=== PATIENT | female | born 1945 | race Caucasian/White ===

== ENCOUNTER → 2017-08-05 | Day surgery (SDC) | payer MEDICARE ==
[~2017-08-05] MED LIST: HYDROmorphone HCL 1 MG/ML SYRINGE (J1170) IV; KETAMINE HCL 200 MG/20 ML VIAL As Ordered; KETOROLAC 60 MG/2 ML VIAL (J1885) As Ordered; LIDOCAINE 2% INJ 100 MG/5 ML SDV (FOR ANES.) As Ordered; LR 1,000 ML IV; METOCLOPRAMIDE INJ 10MG/2ML VIAL (J2765) As Ordered; MIDAZOLAM INJ 2 MG/2 ML VIAL (J2250) As Ordered; ONDANSETRON 4MG/2ML VIAL (J2405) As Ordered; PERCOCET 5MG/325MG TAB PO; PHENYLephrine HCL 500 MCG/5 ML (100MCG/ML) SYRINGE (J2370) As Ordered; PROPOFOL 200 MG/20 ML VIAL As Ordered; dexameTHASONE 4 MG/ML 1ML VIAL (J1100) As Ordered; fentaNYL 100 MCG/2 ML INJECTION (J3010) As Ordered; fentaNYL 100 MCG/2 ML INJECTION (J3010) IV
[2017-08-05] MEDS: LR 1,000 ML IV ×2 (08:40)
[2017-08-05] MEDS: dexameTHASONE 4 MG/ML 1ML VIAL (J1100) As Ordered ×2 (08:47)
[2017-08-05] MEDS: BUPIVACAINE HCL 0.25% 30 ML VIAL As Ordered ×2 (08:47)
[2017-08-05] MEDS: BUPIVACAINE HCL 0.5% 30 ML VIAL As Ordered ×2 (09:58)
[2017-08-05] MEDS: LIDOCAINE 2% MDV 20 ML VIAL As Ordered ×2 (09:58)
[2017-08-05] MEDS: BACITRACIN PWD 50,000 UNITS VIAL As Ordered ×2 (09:58)
[2017-08-05] MEDS: NEOSPORIN GU IRRIG 20 ML VIAL As Ordered ×2 (10:01)
[2017-08-05] MEDS: ONDANSETRON 4MG/2ML VIAL (J2405) IV ×2 (12:40)
== END | disposition home or self-care (01) ==
LOC: M SDC 08:11
DX: M20.42 Other hammer toe(s) (acquired), left foot (principal); M21.622 Bunionette of left foot; I48.91 Unspecified atrial fibrillation; K21.9 Gastro-esophageal reflux disease without esophagitis; E78.2 Mixed hyperlipidemia; Z79.899 Other long term (current) drug therapy; Z88.8 Allergy status to other drugs, medicaments and biological substances
CPT/HCPCS: 28296

== ENCOUNTER → 2020-03-08 | Outpatient (CLI) | payer MEDICARE ==
[~2020-03-08] MED LIST changes: +AMIT50TA PO; +CEPH250T; +CEPH250T PO; -HYDROmorphone HCL 1 MG/ML SYRINGE (J1170) IV; -KETAMINE HCL 200 MG/20 ML VIAL As Ordered; -KETOROLAC 60 MG/2 ML VIAL (J1885) As Ordered; -LIDOCAINE 2% INJ 100 MG/5 ML SDV (FOR ANES.) As Ordered; -LR 1,000 ML IV; +METO50TA7 PO; -METOCLOPRAMIDE INJ 10MG/2ML VIAL (J2765) As Ordered; -MIDAZOLAM INJ 2 MG/2 ML VIAL (J2250) As Ordered; +OMEP40CA97 PO; -ONDANSETRON 4MG/2ML VIAL (J2405) As Ordered; -PERCOCET 5MG/325MG TAB PO; -PHENYLephrine HCL 500 MCG/5 ML (100MCG/ML) SYRINGE (J2370) As Ordered; -PROPOFOL 200 MG/20 ML VIAL As Ordered; +SIMV40TA20 PO; +XARE10TA PO; -dexameTHASONE 4 MG/ML 1ML VIAL (J1100) As Ordered; -fentaNYL 100 MCG/2 ML INJECTION (J3010) As Ordered; -fentaNYL 100 MCG/2 ML INJECTION (J3010) IV
--- NOTE | 2020-03-13 17:34 | SLEEPCENT ---
DATE: 03/08/2020 ORDERED BY: Micky Goodman MD Nocturnal polysomnography was performed for evaluation of sleep physiology in this patient with a history of excessive somnolence and nonrestorative sleep. Seven hours and 20 minutes of data were reviewed. There was 124 minutes of sleep identified. Sleep latency was prolonged at 43 minutes. REM sleep was not achieved. Sleep architecture was quite poor with frequent arousals, fragmentation and no progression to REM. Overall sleep efficiency was only 28.4%. The electrocardiogram showed atrial fibrillation with a ventricular response rate on average 80 beats per minute. Rate ranged 62-120. EEG showed reasonably normal waveforms for wake and sleep. There were 98 respiratory events identified of 10 seconds in duration or greater for an apnea-hypopnea index of 47.4. The events were primarily obstructive, not exclusive to sleep stage or body posture. Arousals from respiratory events occurred 29.5 times per hour, and oxygen desaturations were seen below 90%. Significant limb activity was also appreciated. The limb movement arousal index was 16.9. IMPRESSIONS: 1. Severe obstructive sleep apnea syndrome (G47.33). Apnea-hypopnea index 47.4. 2. Periodic limb movement disorder (G47.61). Limb movement arousal index 16.9. RECOMMENDATION: The patient should be encouraged to return to the sleep disorder center for pressure therapy. In the interim, alcohol and sedative avoidance should be practiced and caution exercised during the operation of motor vehicles. Pending the response to pressure therapy, interventions to reduce the frequency arousal from limb activity may also be helpful. MTDD
== END ==
LOC: M SLEEP 20:00
PROVIDERS: ATTEND Physician Assistant
DX: G47.33 Obstructive sleep apnea (adult) (pediatric) (principal); G47.61 Periodic limb movement disorder

== ENCOUNTER → 2020-04-16 | Outpatient (CLI) | payer MEDICARE | LOC: M LABSMTC 09:43 | PROVIDERS: ATTEND Internal Medicine Cardiovascular Disease | DX: Z01.812 Encounter for preprocedural laboratory examination (principal); Z20.828 Contact with and (suspected) exposure to other viral communicable diseases | CPT/HCPCS: C9803; U0003 ==

== ENCOUNTER → 2020-05-08 | Outpatient (CLI) | payer MEDICARE ==
--- NOTE | 2020-05-13 14:27 | SLEEPHOME ---
DATE: 05/08/2020 ORDERED BY: MARCO ANTONIO Jenkins Nocturnal polysomnography was performed for the titration of pressure therapy in this patient with obstructive sleep apnea syndrome with apnea-hypopnea index of 47.4. For testing a [employer]pir[employer] full face mask of large size was used, 4 cm of water pressure were applied to the circuit, and the lights were extinguished. There was 7 hours and 48 minutes of data that were reviewed. There were 242.5 minutes of sleep identified. Sleep latency was normal at 32 minutes. REM sleep was somewhat delayed at 199 minutes. Sleep architecture showed persistence of fragmentation and periods of wake, resulting in a reduced sleep efficiency of 52.8%. The electrocardiogram showed supraventricular rhythm with an average heart rate of 88 beats per minute, rate range 70-100, possibly atrial fibrillation. EEG showed normal waveforms for wake and sleep. Respiratory events were reasonably palliated with CPAP at a pressure of +8. Some persistent of limb activity was appreciated and on this occasion, the limb movement arousal index was 15.6. IMPRESSION: Obstructive sleep apnea syndrome (G47.33). RECOMMENDATION: Nightly use of pressure therapy 8 cm of water. Should sleep symptoms persist, interventions to reduce the frequency and arousal from limb activity may also be helpful. MTDD
== END ==
LOC: M SLEEP 20:00
PROVIDERS: ATTEND Physician Assistant
DX: G47.33 Obstructive sleep apnea (adult) (pediatric) (principal)

== ENCOUNTER → 2020-06-06 | Outpatient (CLI) | payer MEDICARE ==
--- NOTE | 2020-06-09 10:52 | ECHO ---
DATE OF PROCEDURE: 06/06/2020 Age: 75 Gender: Female Height: 62 inches Weight: 219 pounds REFERRING PHYSICIAN: Suresh Morales MD. INDICATION: Syncope. MEASUREMENTS: 2D Measurements: Left atrium 4.4 cm Aortic root 3.0 cm Intraventricular septum 1.33 cm Posterior wall 1.31 cm Left ventricle diastole 4.1 cm Inferior vena cava 1.5 cm (more than 50% respiratory variation). Doppler Measurements: Very mild aortic regurgitation No aortic stenosis Aortic valve velocity 108 cm/s LVOT velocity 54.1 cm/s Very mild mitral regurgitation No mitral stenosis Mild tricuspid regurgitation Estimated right ventricle systolic pressure 33-38 mmHg Estimated right atrial pressure of 5-10 mmHg No pulmonic regurgitation Pulmonary artery systolic pressure 33 mmHg DESCRIPTION: Rhythm was atrial fibrillation. This was a moderately technically difficult echocardiogram. No pericardial effusion. This was a 2D, M-mode, color flow Doppler, and pulsed wave Doppler examination including mitral annular tissue Doppler. CONCLUSIONS: 1. Mild concentric left ventricular hypertrophy. Normal regional left ventricular (LV) wall motion and wall thickening. Normal left ventricular (LV) systolic function. Left ventricular ejection fraction (LVEF) 65% by visual estimate. Left ventricular (LV) diastolic function could not be determined in the setting of atrial fibrillation. 2. Mild left atrial dilatation. 3. Normal right ventricle size and systolic function. Suggestive of mild elevation of pulmonary artery systolic pressure and estimated right ventricle systolic pressure. 4. Mild mitral annular calcification with mild mitral regurgitation. 5. Very mild aortic valve sclerosis of a 3-cuspid aortic valve. Very mild aortic regurgitation. 6. No pericardial effusion. 7. Otherwise normal appearing echocardiogram Doppler findings. [facility]
== END ==
LOC: M CARPUL 13:33
PROVIDERS: ATTEND Internal Medicine Cardiovascular Disease
DX: R55 Syncope and collapse (principal)